=== PATIENT | female | born 1960 | race Caucasian/White ===

== ENCOUNTER 2018-09-02 11:57 | Outpatient (CLI) | payer OTHER ==
[~2018-09-02] VITALS: Ht 172.7 cm; Wt 71.7 kg
[2018-09-02] MEDS ORDERED: MELATONIN10 M2 PO (12:20)
== END 2018-09-02 16:01 | disposition home or self-care (01) ==
LOC: OFIC 805 11:57
DX: H93.13 Tinnitus, bilateral (principal); J31.0 Chronic rhinitis

== ENCOUNTER 2019-01-07 10:27 | Outpatient (CLI) | payer OTHER ==
[~2019-01-07 10:27] MED LIST: MELATONIN10 M2 PO
== END 2019-01-07 10:36 | disposition home or self-care (01) ==
LOC: RAD 10:27
DX: M25.512 Pain in left shoulder (principal)

== ENCOUNTER 2020-06-07 08:50 | Outpatient (CLI) | payer OTHER | END 2020-06-07 09:04 | disposition home or self-care (01) | LOC: RAD 08:50 | PROVIDERS: ATTEND Orthopaedic Surgery | DX: M25.562 Pain in left knee (principal) ==

== ENCOUNTER → 2020-06-08 09:10 | Outpatient (CLI) | payer OTHER | END | disposition home or self-care (01) | LOC: LAB 09:10 | PROVIDERS: ATTEND Orthopaedic Surgery | DX: E55.9 Vitamin D deficiency, unspecified (principal); M85.9 Disorder of bone density and structure, unspecified; E21.3 Hyperparathyroidism, unspecified; M81.8 Other osteoporosis without current pathological fracture; E56.1 Deficiency of vitamin K ==

== ENCOUNTER → 2022-01-30 08:39 | Outpatient (CLI) | payer OTHER | END | disposition home or self-care (01) | LOC: LAB 08:39 | PROVIDERS: ATTEND Orthopaedic Surgery | DX: E55.9 Vitamin D deficiency, unspecified (principal); M85.9 Disorder of bone density and structure, unspecified; E56.1 Deficiency of vitamin K; E21.3 Hyperparathyroidism, unspecified; E88.9 Metabolic disorder, unspecified; M81.8 Other osteoporosis without current pathological fracture; M19.90 Unspecified osteoarthritis, unspecified site ==

== ENCOUNTER 2022-01-30 09:52 | Outpatient (CLI) | payer OTHER | END 2022-01-30 10:29 | disposition home or self-care (01) | LOC: NUCLEAR 09:52 | PROVIDERS: ATTEND Orthopaedic Surgery | DX: M81.0 Age-related osteoporosis without current pathological fracture (principal) ==

== ENCOUNTER 2022-05-31 11:05 | Outpatient (CLI) | payer OTHER | END 2022-05-31 11:15 | disposition home or self-care (01) | LOC: RAD 11:05 | PROVIDERS: ATTEND Orthopaedic Surgery | DX: M25.561 Pain in right knee (principal); M25.562 Pain in left knee; M79.671 Pain in right foot; M79.672 Pain in left foot; M25.571 Pain in right ankle and joints of right foot; M25.572 Pain in left ankle and joints of left foot ==

== ENCOUNTER 2022-06-26 08:11 | Outpatient (CLI) | payer OTHER | END 2022-06-26 08:13 | disposition home or self-care (01) | LOC: NUCLEAR 08:11 | PROVIDERS: ATTEND Thoracic Surgery (Cardiothoracic Vascular Surgery) | DX: I87.2 Venous insufficiency (chronic) (peripheral) (principal) ==

== ENCOUNTER 2022-06-27 09:05 | Outpatient (CLI) | payer OTHER | END 2022-06-27 09:20 | disposition home or self-care (01) | LOC: NUCLEAR 09:05 | PROVIDERS: ATTEND Thoracic Surgery (Cardiothoracic Vascular Surgery) | DX: I86.8 Varicose veins of other specified sites (principal); I87.2 Venous insufficiency (chronic) (peripheral) ==

== ENCOUNTER 2022-11-06 12:22 | Outpatient (CLI) | payer OTHER | END 2022-11-06 12:34 | disposition home or self-care (01) | LOC: MAMO-SONO 12:22 | PROVIDERS: ATTEND General Practice | DX: N63.0 Unspecified lump in unspecified breast (principal); N63.20 Unspecified lump in the left breast, unspecified quadrant ==

== ENCOUNTER 2023-01-28 10:06 | Outpatient (CLI) | payer OTHER | END 2023-01-28 10:27 | disposition home or self-care (01) | LOC: RAD 10:06 | DX: M79.642 Pain in left hand (principal); M79.641 Pain in right hand; M25.572 Pain in left ankle and joints of left foot; M25.571 Pain in right ankle and joints of right foot ==

== ENCOUNTER 2024-08-31 09:37 | Outpatient (CLI) | payer OTHER | END 2024-08-31 09:42 | disposition home or self-care (01) | LOC: MAMO-SONO 09:37 | DX: M75.51 Bursitis of right shoulder (principal); M75.52 Bursitis of left shoulder; R92.8 Other abnormal and inconclusive findings on diagnostic imaging of breast; Z12.31 Encounter for screening mammogram for malignant neoplasm of breast ==